=== PATIENT | female | born 1975 | race Caucasian/White ===

== ENCOUNTER 2017-12-13 11:02 | Emergency (ER) | payer BC ==
[2017-12-13 11:46] VITALS: BP 96/61
--- NOTE | 2017-12-13 12:16 | RAD ---
Indication: Right hand injury and pain. 5 views of the right hand are reviewed. There is no fracture or dislocation. No other bone or joint abnormality is identified. Joint spaces all well-preserved. IMPRESSION: No fracture of the right hand is noted.
--- NOTE | 2017-12-13 13:25 | UC ---
Aranza Souza Jason, scribed for Santiago Kiser MD on 12/13/17 at 1242 . Hand/Wrist HPI - HPI Summary HPI Summary: This patient is a 42 year old F presenting to [facility] with a chief complaint of right hand and wrist pain since today. The patient states that a trunk of a car fell down on her hand and she is now experiencing pain. The patient rates the pain 8/10 in severity. Symptoms aggravated by movement. Symptoms alleviated by nothing. Patient reports right hand and wrist pain. - History Of Current Complaint Chief Complaint: UCUpperExtremity Stated Complaint: HAND INJURY Time Seen by Provider: 12/13/17 12:32 Hx Obtained From: Patient Hx Last Menstrual Period: 12/04/17 Onset/Duration: Sudden Onset - this morning at her car, Still Present Pain Intensity: 8 Pain Scale Used: 0-10 Numeric Aggravating Factor(s): Movement Alleviating Factor(s): Nothing - Allergies/Home Medications Allergies/Adverse Reactions: Allergies Allergy/AdvReac Type Severity Reaction Status Date / Time erythromycin base Allergy Facial Verified 12/13/17 11:47 Redness/Flushing Home Medications: Home Medications Ibuprofen 400 mg PO 12/13/17 [History] PMH/Surg Hx/FS Hx/Imm Hx Previously Healthy: Yes - Surgical History Surgical History: Yes Surgery Procedure, Year, and Place: wisdom teeth extraction - Social History Alcohol Use: Occasionally Substance Use Type: None Smoking Status (MU): Never Smoked Tobacco Review of Systems Constitutional: Other - negative fever Musculoskeletal: Other: - right hand and wrist pain All Other Systems Reviewed And Are Negative: Yes Physical Exam - Summary Physical Exam Summary: General: well-appearing, no pain distress Skin: warm, color reflects adequate perfusion, dry. 2 abrasions and swelling about 5mm in diameter on the right hand, distal to the wrist, base of the thumb , and the second metacarpal. Head: normal Eyes: EOMI, SELINA ENT: normal Neck: supple, nontender Respiratory: CTA, breath sounds present Cardiovascular: RRR Abdomen: soft, nontender Bowel: present Musculoskeletal: Good ROM of wrist with some pain. Mildly decreased ROM of thumb and index finger secondary to pain. Neurological: normal, sensory/motor intact, A&O x3 Psychological: affect/mood appropriate Triage Information Reviewed: Yes Vital Signs: Initial Vital Signs Temp 99.0 F 12/13/17 11:42 Pulse 53 12/13/17 11:42 Resp 18 12/13/17 11:42 BP 96/61 12/13/17 11:42 Pulse Ox 100 12/13/17 11:42 Diagnostics - Radiology hand xray Radiology Interpretation Completed By: Radiologist - No fracture of the right hand is noted. physician has reviewed this radiology report. Hand/Wrist Course/Dx - Course Course Of Treatment: Hand x-ray reveals, pre radiologist, no fracture of the right hand. DISCUSSED X-RAY RESULTS WITH PATIENT. - Differential Dx/Diagnosis Provider Diagnoses: RIGHT HAND CRUSH INJURY AND ABRASION Discharge - Discharge Plan Condition: Stable Disposition: HOME Patient Education Materials: Contusion in Adults (ED) Referrals: Gracie Faustin MD [Primary Care Provider] - Additional Instructions: FOLLOW UP WITH YOUR DOCTOR IF NOT COMPLETELY IMPROVED. GET RECHECKED FOR ANY WORSENING OF YOUR CONDITION OR QUESTIONS OR CONCERNS. The documentation as recorded by the Aranza weinberg Jason accurately reflects the service I personally performed and the decisions made by me, Santiago Kiser MD.
== END 2017-12-13 12:50 | disposition home or self-care (01) ==
LOC: UCEAST 11:02
DX: S69.91XA Unspecified injury of right wrist, hand and finger(s), initial encounter (principal); S60.511A Abrasion of right hand, initial encounter; W22.8XXA Striking against or struck by other objects, initial encounter; Y92.9 Unspecified place or not applicable
CPT/HCPCS: 99213; G0463